=== PATIENT | male | born 1945 | race Caucasian/White ===

== ENCOUNTER → 2018-03-06 | Outpatient (CLI) | payer MEDICARE ==
--- NOTE | 2018-03-06 16:31 | CT ---
EXAMINATION TYPE: CT abdomen pelvis wo con DATE OF EXAM: 03/06/2018 COMPARISON: None HISTORY: Upper Abdominal pain with nausea and diarrhea CT DLP: 764.5 mGycm Examination of the solid and hollow viscera is limited given the lack of contrast. FINDINGS: LUNG BASES: No evidence for nodule. No evidence for infiltrate. 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 LIVER/GB: The gallbladder is surgically absent. No space-occupying hepatic lesion. PANCREAS: No pancreatic mass identified. No inflammatory process seen. SPLEEN: No evidence for splenomegaly. No intrasplenic lesions seen. ADRENALS: No adrenal nodules identified. No evidence for thickening. KIDNEYS: Hypoattenuating lesion 2 cm of the left kidney. Consider ultrasound correlation. No addition al left renal lesion seen. Additional vague area of decreased attenuation lower pole right kidney. 2 mm nonobstructing right-sided nephrolithiasis mid to upper pole. No hydronephrosis. BOWEL: Appendix has a normal appearance. No evidence of bowel obstruction. No inflammatory process. Lymph nodes: No evidence for adenopathy greater than 1 cm. Abdominal aorta: Atheromatous changes seen. No evidence for aneurysm. Genital organs: No significant abnormality. Other: Fat-containing inguinal hernias right greater than left. IMPRESSION: 1. No acute process seen. 2. Nonspecific renal lesions. Consider ultrasound correlation. 3. 2 mm nonobstructing right renal calculus.
== END | disposition home or self-care (01) ==
LOC: RADCTMAIN 15:59
PROVIDERS: ATTEND Internal Medicine
DX: N20.0 Calculus of kidney (principal); N28.89 Other specified disorders of kidney and ureter
CPT/HCPCS: 74176

== ENCOUNTER → 2018-03-15 | Outpatient (CLI) | payer MEDICARE ==
--- NOTE | 2018-03-15 09:45 | US ---
EXAMINATION TYPE: US kidneys/renal and bladder DATE OF EXAM: 03/15/2018 COMPARISON: CT 03/06/2018 CLINICAL HISTORY: N28.9 Kidney Lesion. Abdominal pain, kidney lesion seen on recent CT EXAM MEASUREMENTS: Right Kidney: 11.7 x 4.9 x 4.9 cm Left Kidney: 11.5 x 5.4 x 4.4 cm Right Kidney: Within the lower pole of the right kidney correlating abnormality is noted but is not c learly simple cystic, cystic area lower pole = 1.4 x 1.4 x 1.3cm. Dense echogenic area mid with no sh adowing = 0.4cm. Left Kidney: cystic area upper pole = 2.3 x 2.3 x 2.1cm, not clearly simple cystic Bladder: wnl Bilateral Jets seen: yes There is no evidence for hydronephrosis at this point in time. No nephrolithiasis is seen. No roderick s are identified. The urinary bladder is anechoic. Bilateral ureteral jets are seen. IMPRESSION: Nonobstructive right nephrolithiasis. Lesions small for characterization, follow-up to assess for sta bility, MRI could be performed for additional evaluation.
== END | disposition home or self-care (01) ==
LOC: RADUSWWP 09:00
PROVIDERS: ATTEND Internal Medicine
DX: N20.0 Calculus of kidney (principal)
CPT/HCPCS: 76770

== ENCOUNTER 2020-04-18 07:46 | Day surgery (SDC) | payer BC ==
[2020-04-17 09:32] VITALS: BMI 30.2
[~2020-04-18 07:46] MED LIST: LACTATED RINGERS 1,000 ML IV SCH; LIDOCAINE 1% (10MG/ML) FOR IV START INTRADERMA PRN
[2020-04-18 08:34] VITALS: RESP 16; TEMP 98
[2020-04-18] MEDS ORDERED: PROPOFOL 10 MG/ML 20 ML VIAL IV ONE (09:10)
[2020-04-18] MEDS ORDERED: LIDOCAINE 1% INJ 10MG/ML (20 ML MDV) ONE (09:10)
--- NOTE | 2020-04-18 09:24 | P.PCN ---
Date of Procedure: 04/18/20 Procedure(s) Performed: BRIEF HISTORY: Patient is a 74-year-old, pleasant, white male scheduled for an upper endoscopy as a part of evaluation of epigastric pain, abdominal bloating, intermittent nausea vomiting and passive regurgitation for the last 5-6 months duration. Symptoms have been progressively getting worse.. No associated weight loss. PROCEDURE PERFORMED: Esophagogastroduodenoscopy. PREOPERATIVE DIAGNOSIS: Epigastric pain/early satiety/nausea and abdominal bloating of 6 months duration. IV sedation per anesthesia. PROCEDURE: After informed consent was obtained, the patient was brought into the endoscopy unit. IV sedation was administered by Anesthesia under continuous monitoring. Initially the Olympus GIF-140 video endoscope was inserted into the mouth. Esophagus intubated without any difficulty. It was gradually advanced into the stomach and duodenum and carefully examined. The bulb and the second part of the duodenum appeared normal. Biopsies were done from the duodenum to rule out celiac disease. The scope at this time was withdrawn to the stomach, adequately insufflated with air, and upon careful examination, mucosa of the antrum, had mild diffuse gastritis and biopsies were done from this area. There were multiple polyps noted in the gastric body which were biopsied. Rest of the body, cardia and the fundus appeared normal. The scope was then withdrawn into the esophagus. The GE junction was located at 39 cm from the incisors. Small sliding type hiatal hernia noted. The esophagus appeared normal. There were no erosions or ulcerations seen, biopsies were done from the distal esophagus and the patient tolerated the procedure well. IMPRESSION: 1. Mild diffuse antral gastritis. 2. Multiple gastric polyps. 3. Small hiatal hernia RECOMMENDATIONS: The findings of this examination were discussed with the patient as well as his family. He was advised to follow with the biopsy results. He will continue with omeprazole 40 mg daily and follow antireflux measures..
[2020-04-18 09:47] VITALS: BP 145/90; PULSE 76
== END 2020-04-18 09:58 | disposition home or self-care (01) ==
LOC: ORWHC2ENDO 07:46
PROVIDERS: ATTEND Internal Medicine Gastroenterology
DX: K29.50 Unspecified chronic gastritis without bleeding (principal); K31.7 Polyp of stomach and duodenum; K44.9 Diaphragmatic hernia without obstruction or gangrene; I25.10 Atherosclerotic heart disease of native coronary artery without angina pectoris; E07.9 Disorder of thyroid, unspecified; K21.9 Gastro-esophageal reflux disease without esophagitis; Z88.0 Allergy status to penicillin; Z91.048 Other nonmedicinal substance allergy status; Z79.899 Other long term (current) drug therapy; Z79.890 Hormone replacement therapy; Z79.82 Long term (current) use of aspirin; Z97.2 Presence of dental prosthetic device (complete) (partial); Z87.891 Personal history of nicotine dependence; Z90.49 Acquired absence of other specified parts of digestive tract; Z98.890 Other specified postprocedural states; Z95.5 Presence of coronary angioplasty implant and graft
CPT/HCPCS: 88305; 43239; J2001; J2704

== ENCOUNTER 2020-04-21 01:56 | Emergency (ER) | payer BC ==
[2020-04-21 02:05] VITALS: TEMP 98.1
[2020-04-21 02:34] LABS: Basophils % (A) 0 %; Eosinophils # (A) 0.3 k/uL (0-0.7); Eosinophils % (A) 5 %; HCT 46.5 % (39.0-53.0); HGB 15.6 gm/dL (13.0-17.5); Lymphocytes # (A) 0.9 k/uL (1.0-4.8); Lymphocytes % (A) 17 %; MCH 31.9 pg (25.0-35.0); MCHC 33.6 g/dL (31.0-37.0); Mean Platelet Volume 8.2; Monocytes # (A) 0.4 k/uL (0-1.0); Monocytes % (A) 8 %; Neutrophils # (A) 3.6 k/uL (1.3-7.7); Neutrophils % (A) 68 %; Platelet Count 186 k/uL (150-450); RDW 12.7 % (11.5-15.5); WBC 5.2 k/uL (3.8-10.6)
[2020-04-21 02:42] LABS: INR 0.9 (<1.2); Partial Thromboplastin Time 24.4 sec (22.0-30.0); Prothrombin Time 9.8 sec (9.0-12.0)
[2020-04-21 02:44] LABS: ALT 21 U/L (4-49); AST 27 U/L (17-59); African American GFR (CKD) >90 (>60 ml/min/1.73 sqM); Albumin 4.2 g/dL (3.5-5.0); Alkaline Phosphatase 65 U/L (38-126); Anion Gap 6 mmol/L; Blood Urea Nitrogen 15 mg/dL (9-20); Calcium 8.8 mg/dL (8.4-10.2); Carbon Dioxide 26 mmol/L (22-30); Chloride 106 mmol/L (98-107); Glucose 127 mg/dL (74-99); Lipase 178 U/L (23-300); Non-African American GFR(CKD) >90 (>60 ml/min/1.73 sqM); Potassium 3.8 mmol/L (3.5-5.1); Sodium 138 mmol/L (137-145); Total Bilirubin 0.5 mg/dL (0.2-1.3)
--- NOTE | 2020-04-21 02:49 | XR ---
EXAMINATION TYPE: XR chest 2V DATE OF EXAM: 04/21/2020 COMPARISON: NONE HISTORY: Chest pain TECHNIQUE: 2 views FINDINGS: Heart is normal. There is mild blunting left costophrenic angle. There is slight elevated l eft diaphragm. There are no hilar masses. There is no heart failure. Mediastinum is normal. There are chest leads. IMPRESSION: Mild pleural reaction at the left lung base. Normal heart.
[2020-04-21] MEDS ORDERED: PANTOPRAZOLE 40 MG/10 ML VIAL IVP STA (03:19)
[2020-04-21] MEDS ORDERED: MAG HYDROX/AL HYDROX/SIMETH 30 ML, HYOSCYAMINE ELIXIR 10 ML, LIDOCAINE VISCOUS 2% 10 ML PO STA ×3 (03:19)
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
[2020-04-21] MEDS ORDERED: KETOROLAC 15 MG/ML 1 ML VIAL IVP STA (04:03)
[2020-04-21 04:20] VITALS: BP 139/94; PULSE 66; RESP 18
== END 2020-04-21 04:54 | disposition home or self-care (01) ==
LOC: EC 01:56
DX: K20.9 Esophagitis, unspecified (principal); K21.9 Gastro-esophageal reflux disease without esophagitis; M19.90 Unspecified osteoarthritis, unspecified site; E07.9 Disorder of thyroid, unspecified; I25.10 Atherosclerotic heart disease of native coronary artery without angina pectoris; Z79.82 Long term (current) use of aspirin; Z79.890 Hormone replacement therapy; Z79.899 Other long term (current) drug therapy; Z88.0 Allergy status to penicillin; Z91.041 Radiographic dye allergy status; Z85.46 Personal history of malignant neoplasm of prostate; Z87.891 Personal history of nicotine dependence; Z92.3 Personal history of irradiation; Z95.5 Presence of coronary angioplasty implant and graft; Z90.49 Acquired absence of other specified parts of digestive tract; Z80.0 Family history of malignant neoplasm of digestive organs
CPT/HCPCS: 36415; 93005; 83880; 80053; 83690; 83735; 84484; 85025; 85610; 85730; 71046; 99285; 96374; 96375; J1885; C9113

== ENCOUNTER → 2020-06-16 | Outpatient (CLI) | payer BC ==
--- NOTE | 2020-06-16 20:30 | US ---
EXAMINATION TYPE: US thyroid st tissue head/neck DATE OF EXAM: 06/16/2020 COMPARISON: NONE CLINICAL HISTORY: 74-year-old male R13.10 DYSPHAGIA. Dysphagia. Patient takes thyroid medication. *Cale majano had radioactive iodine therapy many years ago. TECHNIQUE: Multiple sonographic images of the thyroid gland are obtained. FINDINGS: GLAND SIZE: Right Lobe: No thyroid tissue seen at this time. Left Lobe: There does appear to be some thyroid tissue on left side measuring approximately: 4.4 x 1. 0 x 1.8 cm Overall Parenchyma: heterogeneous Isthmus Thickness: 0.27 cm NODULES RIGHT: # of nodules measured on right: 0 Tissue was not visualized at this time on the right side. LEFT: 1. 1.5 X 1.4 x 1.3 cm heterogeneous solid nodule seen at the lower pole with well-defined margins. This area is wider than tall and shows vascularity. Prior size: no prior ISTHMUS: # of nodules measured in the isthmus: 0 Bilateral neck scanned, no evidence of lymphadenopathy. Machine Tool Operator notes: Limited exam. There does appear to be tissue on the left side and left side of ist hmus. Rounded, heterogeneous area with vascularity seen on the left side as mentioned above. IMPRESSION: 1. The packaging associate indicates that the patient had prior radioactive iodine ablation of the thyroid gl and. 2. There is some residual glandular parenchyma on the left side. 3. Additionally, there is a 1.5 cm solid nodule at the left lower pole. The decision to biopsy should be made on a clinical basis.
== END | disposition home or self-care (01) ==
LOC: RADUSWWP 16:49
PROVIDERS: ATTEND Internal Medicine
DX: E04.1 Nontoxic single thyroid nodule (principal); R93.89 Abnormal findings on diagnostic imaging of other specified body structures
CPT/HCPCS: 76536

== ENCOUNTER → 2020-06-30 | Outpatient (CLI) | payer BC ==
--- NOTE | 2020-07-01 16:37 | MR ---
MR liver with and without contrast, MRCP Multiplanar multisequence and postcontrast images obtained through the abdomen following 9 cc Gadavis t IV. Three-dimensional reconstructions performed through the biliary system. Comparison CT scan 03/06/2018 HISTORY: Epigastric pain, R 10.13 The liver shows signal drop on out of phase imaging consistent with hepatic steatosis. There is no ev ident liver mass. The inferior margin of the right lobe of the liver there are T2 bright foci showing a bilobed appearance likely related to patient's prior surgery, there is susceptibility artifact due to the metallic clips, in comparison to CT scan the cystic focus has increased in size and now measu res 4 x 2.8 cm x 2.4 cm where as on previous exam the area measured only 2.2 cm in greatest transvers e dimension by 1.4 cm in cephalad to caudal dimension by 1.2 cm in AP dimension area Kidneys show probable associated cysts, no hydronephrosis. Adrenal glands within normal limits. No re troperitoneal adenopathy or ascites. Aorta shows normal caliber in its visualized portions. Spleen is not enlarged. Pancreas shows no mass. Biliary system is not dilated, there is no abnormal filling defect to suggest choledocholithiasis. No abnormal enhancement following contrast administration. IMPRESSION: Bilobed cystic focus in the region of patient's cholecystectomy clips could represent dil ated cystic duct remnant. There is been progression in size as compared to prior exam as described. N o biliary ductal dilatation or choledocholithiasis. Hepatic steatosis.
== END | disposition home or self-care (01) ==
LOC: RADMRIMAIN 14:35
PROVIDERS: ATTEND Internal Medicine
DX: K76.0 Fatty (change of) liver, not elsewhere classified (principal); Z90.49 Acquired absence of other specified parts of digestive tract
CPT/HCPCS: 74183; A9585

== ENCOUNTER 2020-07-14 10:49 | Outpatient (CLI) | payer BC ==
[2020-07-14 11:31] LABS: African American GFR (CKD) >90 (>60 ml/min/1.73 sqM); Blood Urea Nitrogen 18 mg/dL (9-20); Non-African American GFR(CKD) 85 (>60 ml/min/1.73 sqM)
--- NOTE | 2020-07-14 13:07 | CT ---
EXAMINATION TYPE: CT soft tissue neck w con DATE OF EXAM: 07/14/2020 COMPARISON: Ultrasound 06/16/2020 HISTORY: 74-year-old male male E04.1, Follow up nodule. TECHNIQUE: Contiguous axial scanning of the soft tissues of the neck performed with IV Contrast, carlos ent injected with 100 mL of Isovue 300. Coronal/sagittal reconstructions performed. CT DLP: 534.9 mGycm Automated exposure control for dose reduction was used. FINDINGS: Possible pleural plaque posterior right upper hemithorax with tiny calcification, axial image 2. Jasmyn elation can be made for any prior asbestos exposure. Visualized intracranial structures, orbits and globes, and mastoid air cells appear clear. Leftward n julio c septal deviation. Trace mucosal thickening ethmoid air cells. Nasopharynx is clear. Oropharynx is clear with mild minimal tonsillar hypertrophy. Epiglottis within normal limits. Some nonspecific calcifications below the anterior arch of C1 of que stionable clinical significance given the lack of any retropharyngeal effusion. Glottic and subglottic structures as well as the tracheal column and visualized upper lungs otherwise clear. Minimal residual thyroid parenchyma is present, left greater than right. A heterogeneously enhancing 1.5 cm nodule is present on the left. The submandibular and parotid glands appear satisfactory. No cervical lymphadenopathy identified. Bones: Hypertrophic uncovertebral joint arthropathy. Moderate endplate spondylosis particularly towar ds the right mid and lower cervical spine. Reversal of the normal cervical lordosis. IMPRESSION: 1. SMALL AMOUNT OF RESIDUAL THYROID GLAND PARENCHYMA REMAINS ON EITHER SIDE, LEFT GREATER THAN RIGHT. 2. IN ADDITION, THERE IS A HETEROGENEOUSLY ENHANCING 1.5 CM SOLID NODULE IN THE LEFT LOBE. 3. NO CERVICAL LYMPHADENOPATHY OR OTHER MASS. 4. THERE APPEARS TO BE A PLEURAL PLAQUE WITH PUNCTATE CALCIFICATION IN THE VISUALIZED RIGHT UPPER STEF G. QUERY HISTORY OF PRIOR ASBESTOS EXPOSURE.
[2020-07-14 13:12] VITALS: RESP 18; TEMP 98.1
[2020-07-14 13:13] VITALS: BP 124/76; PULSE 84
--- NOTE | 2020-07-14 14:33 | US ---
EXAMINATION TYPE: US FNA thyroid first lesion DATE OF EXAM: 07/14/2020 COMPARISON: NONE HISTORY: Thyroid nodule, E04.1 Maximal barrier technique was utilized. Ultrasound using sterile technique. The skin overlying the lo wer pole left-sided thyroid nodule was localized with ultrasound and the overlying skin prepped and d raped. Lidocaine used for local anesthesia. 5 passes with a 25-gauge needle were made into the nodule under ultrasound guidance. Aspirate specimen submitted to cytology. Following the procedure hemostas is achieved. No immediate complication IMPRESSION: Status post ultrasound-guided fine-needle aspiration of thyroid nodule, pathology pending .
== END 2020-07-14 13:00 | disposition home or self-care (01) ==
LOC: RADCTMAIN 10:49
PROVIDERS: ATTEND Otolaryngology
DX: E04.1 Nontoxic single thyroid nodule (principal); Z88.0 Allergy status to penicillin; Z98.890 Other specified postprocedural states
CPT/HCPCS: 82565; 84520; 10005; 70491; Q9967; 88173; 88305

== ENCOUNTER → 2022-08-18 | Outpatient (CLI) | payer BC ==
--- NOTE | 2022-08-18 16:17 | CT ---
EXAMINATION TYPE: CT abdomen pelvis wo con DATE OF EXAM: 08/18/2022 COMPARISON: 03/06/2018 INDICATION: Generalized abdominal pain. DLP: 1167 mGycm, Automated exposure control for dose reduction was used. CONTRAST: 0 mL of Isovue 300. Study performed with Oral Contrast TECHNIQUE: Axial images were obtained from above the diaphragm to the pubic rami in the axial plane a t 5 mm thick sections. Reconstructed images are reviewed on the computer in the coronal plane. FINDINGS: Limited CT sections are obtained the lung bases. There is a pleural-based calcification along the po sterior lateral right lung measuring 0.6 cm. Series 3 image 6. Some additional pleural calcifications in the posterior bilateral lung bases. Example Series 3 image 9 and series 3 image 15. Coronary art samantha calcification is present. CT ABDOMEN: Liver: Normal Spleen: Normal Pancreas: Normal Adrenal glands: The adrenal glands are normal. Gallbladder: Surgically absent . There are cystlike areas within the gallbladder bed. These do not de finitely correlate with bile ducts. This measures 2.2 cm and 0 Hounsfield units Kidneys: No masses are evident. No hydronephrosis is present. There is a 2.9 cm cyst within the sup erior medial left kidney measuring 2 Hounsfield units. There is a small inferior medial right renal c yst measuring 1.7 cm and -3 Hounsfield units. There is a nonobstructing renal stone at the inferior p ole right kidney measuring 0.2 cm. Aorta: Vascular calcification is within the aorta. Inferior vena cava: Normal. CT PELVIS: Loops of bowel within the abdomen and pelvis are normal. Diverticulosis without acute diverticulitis is present oral contrast extends to the ascending colon. There are loops of bowel which are incomp letely distended or lack oral contrast limiting their evaluation. Appendix: Normal as visualized. Urinary bladder: Normal. Genitourinary structures: Prostate is normal Osseous structures: No suspicious lytic or sclerotic lesions. IMPRESSIONS: 1. Nonobstructing right renal stone. 2. Bilateral renal cysts. 3. Cystlike areas of uncertain etiology within the gallbladder bed. 4. Diverticulosis without diverticulitis. 4. Pleural-based calcifications within the dependent lung bases. Correlate for prior specificity expo sure
== END | disposition home or self-care (01) ==
LOC: RADCTMAIN 12:18
PROVIDERS: ATTEND Family Medicine
DX: N20.0 Calculus of kidney (principal); N28.1 Cyst of kidney, acquired; J98.4 Other disorders of lung; K57.30 Diverticulosis of large intestine without perforation or abscess without bleeding
CPT/HCPCS: 74176

== ENCOUNTER → 2022-12-22 | Outpatient (CLI) | payer BC ==
--- NOTE | 2022-12-22 13:02 | CT ---
EXAMINATION TYPE: CT brain wo con DATE OF EXAM: 12/22/2022 HISTORY: Headaches post Cataract sx CT DLP: 1189 mGycm. Automated Exposure Control for Dose Reduction was Utilized. TECHNIQUE: CT scan of the head is performed without contrast. COMPARISON: None. FINDINGS: There is no acute intracranial hemorrhage or midline shift identified. There is mild to m oderate diffuse ventricular and sulcal prominence. There is moderate low-attenuation in the deep and periventricular white matter. The globes are intact and the visualized sinuses are clear. IMPRESSION: No acute intracranial hemorrhage or midline shift. There is mild to moderate diffuse ag e-related cerebral atrophy and moderate probable chronic small vessel ischemic change noted.
== END | disposition home or self-care (01) ==
LOC: RADCTMAIN 12:15
PROVIDERS: ATTEND Family Medicine
DX: I67.82 Cerebral ischemia (principal); G44.52 New daily persistent headache (NDPH); G31.9 Degenerative disease of nervous system, unspecified
CPT/HCPCS: 70450

== ENCOUNTER → 2023-05-10 | Outpatient (CLI) | payer BC ==
--- NOTE | 2023-05-10 13:20 | US ---
EXAMINATION TYPE: US arterial LE single level DATE OF EXAM: 05/10/2023 9:20 AM CLINICAL INDICATION: Male, 77 years old with history of R60.0 LOCALIZED EDEMA BLE; Cat bite to right leg 33 years ago, numbness at site, skin has broken open on and off over the 33 years at same site. History of: Smoker: quit 40 yrs ago Hypertension: n Diabetic: n Hyperlipidemia: n TIA/CVA: n Previous Vascular Surgery: y-heart stents CAD: n AL: n Vascular Ulcers: n Claudication: n Gangrene: n Doppler Waveforms: Right: Multiphasic Left: Multiphasic Right Brachial Pressure: 138 Left Brachial Pressure: 151 Ankle-Brachial Indices: Right: 0.9 Left: 0.8 Toe Brachial Indices: Right: 1.1 Left: 1.1 IMPRESSION: Normal DELIA bilaterally.
== END | disposition home or self-care (01) ==
LOC: RADUSWWP 08:52
PROVIDERS: ATTEND Family Medicine
DX: E11.51 Type 2 diabetes mellitus with diabetic peripheral angiopathy without gangrene (principal); E78.5 Hyperlipidemia, unspecified; I10 Essential (primary) hypertension; I25.10 Atherosclerotic heart disease of native coronary artery without angina pectoris; Z86.73 Personal history of transient ischemic attack (TIA), and cerebral infarction without residual deficits; Z87.891 Personal history of nicotine dependence; Z95.5 Presence of coronary angioplasty implant and graft
CPT/HCPCS: 93922

== ENCOUNTER → 2023-08-25 | Outpatient (CLI) | payer BC ==
[2023-08-25 09:11] LABS: African American GFR (CKD) >90 (>60 ml/min/1.73 sqM); Blood Urea Nitrogen 20 mg/dL (9-20); Non-African American GFR(CKD) 85 (>60 ml/min/1.73 sqM)
--- NOTE | 2023-08-25 10:32 | CT ---
CTA CHEST EXAMINATION TYPE: CT angio chest DATE OF EXAM: 08/25/2023 INDICATION: Disease of mediastinum, calcification lung base CT DLP: 782.6 mGycm, Automated exposure control for dose reduction was used. CONTRAST: Patient injected with 100 ml mL of Isovue 370. COMPARISON: CT abdomen and pelvis 08/18/2022 TECHNIQUE: CT of the chest is performed on a spiral scan at 2 mm thick sections. Study is performed with intravenous contrast timed for evaluation for pulmonary embolism. This will limit additional po rtions of the evaluation. 3-D MIP images reconstructed by the technologist are reviewed on the compu ter in the coronal and sagittal planes. FINDINGS: No persistent filling defects are evident to suggest an acute pulmonary embolism. Posterior pleural calcifications are evident bilaterally within the lower lung melgar. No suspicious calcification along the diaphragms are evident. The lungs appear clear without masses nodules or suspicious infiltrates. The ascending aorta diameter at the level of the main pulmonary artery is 3.5 cm. The main pulmonary artery diameter at the bifurcation is 3.3 cm. Mild coronary artery calcification is present. Limited CT sections were through the upper abdomen. Upper abdomen appears unremarkable. IMPRESSION: 1. Chronic appearing calcification posterior lung bases appears stable from comparison. 2. No suspicious acute pulmonary process.
== END | disposition home or self-care (01) ==
LOC: RADCTMAIN 08:22
PROVIDERS: ATTEND Family Medicine
DX: J98.59 Other diseases of mediastinum, not elsewhere classified (principal); J98.4 Other disorders of lung
CPT/HCPCS: 82565; 84520; 71275; 36415; Q9967

== ENCOUNTER 2025-01-19 04:02 | Observation (INO) | payer BC, MEDICARE ==
[2025-01-19 04:07] VITALS: TEMP 98.6
[2025-01-19] MEDS: SODIUM CHLORIDE 0.9% 1,000 ML IV STA (04:33)
[2025-01-19] MEDS: PANTOPRAZOLE 40 MG/10 ML VIAL IVP STA (04:33)
[2025-01-19] MEDS: ASPIRIN 81 MG PO STA (04:33)
[2025-01-19 05:05] LABS: Basophils # (A) 0.03 10*3/uL (0.00-0.10); Basophils % (A) 0.6 %; Eosinophils % (A) 2.1 %; HCT 45.4 % (39.6-50.0); HGB 15.4 g/dL (13.0-17.0); Lymphocytes # (A) 0.89 10*3/uL (0.90-5.00); Lymphocytes % (A) 18.9 %; MCH 32.2 pg (27.0-32.0); MCHC 33.9 g/dL (32.0-37.0); MCV 94.8 fL (80.0-97.0); Monocytes % (A) 10.6 %; Neutrophils # (A) 3.17 10*3/uL (1.80-7.70); Neutrophils % (A) 67.4 %; Platelet Count 167 10*3/uL (140-440); RBC 4.79 10*6/uL (4.40-5.60); RDW 11.9 % (11.5-14.5); WBC 4.71 10*3/uL (4.50-10.00)
[2025-01-19 05:17] LABS: Partial Thromboplastin Time 24.1 sec (22.0-30.0)
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
[2025-01-19 05:27] LABS: ALT 24 U/L (4-49); AST 32 U/L (17-59); African American GFR (CKD) >90 (>60 ml/min/1.73 sqM); Albumin 4.7 g/dL (3.5-5.0); Alkaline Phosphatase 77 U/L (38-126); Anion Gap 14 mmol/L; Blood Urea Nitrogen 18 mg/dL (9-20); Calcium 9.3 mg/dL (8.4-10.2); Carbon Dioxide 19 mmol/L (22-30); Chloride 104 mmol/L (98-107); Glucose 104 mg/dL (74-99); Lipase 144 U/L (23-300); Non-African American GFR(CKD) >90 (>60 ml/min/1.73 sqM); Sodium 137 mmol/L (137-145); Total Bilirubin 0.8 mg/dL (0.2-1.3); Total Protein 7.5 g/dL (6.3-8.2)
[2025-01-19] MEDS ORDERED: NALOXONE 0.4 MG/ML 1 ML VIAL IV PRN (06:05)
[2025-01-19] MEDS ORDERED: ONDANSETRON 4 MG/2 ML VIAL IVP PRN (06:05)
[2025-01-19] MEDS: SODIUM CHLORIDE 0.9% 1,000 ML IV SCH (06:11)
[2025-01-19 06:13] VITALS: BP 137/99; PULSE 73; RESP 16
--- NOTE | 2025-01-19 06:25 | XR ---
EXAM: XR Chest, 2 Views CLINICAL HISTORY: ITS.REASON XR Reason: Chest Pain TECHNIQUE: Frontal and lateral views of the chest. COMPARISON: CT dated 04/21/2020. FINDINGS: Lungs: Opacification of the left lung base. The right lung is clear. Pleural space: Left-sided pleural effusion. No pneumothorax. Heart: Moderate enlargement of the cardiac silhouette. Mediastinum: Unremarkable. Normal mediastinal contour. Bones/joints: Degenerative changes are seen within the spine and shoulders. No acute fracture. Vasculature: Calcifications overlie the aorta. IMPRESSION: Left-sided small pleural effusion with adjacent atelectasis and/or pneumonia not excluded.
[2025-01-19] MEDS ORDERED: HEPARIN SODIUM,PORCINE 5,000 UNIT/ML 1 ML VIAL SQ SCH (09:00)
== END 2025-01-19 07:55 | disposition left against medical advice (07) ==
LOC: EC 04:02 → 6NMEDSUR 06:05
PROVIDERS: ADMIT Internal Medicine; ATTEND Internal Medicine
DX: R07.9 Chest pain, unspecified (principal); I10 Essential (primary) hypertension; I25.10 Atherosclerotic heart disease of native coronary artery without angina pectoris; K21.9 Gastro-esophageal reflux disease without esophagitis; Z79.82 Long term (current) use of aspirin; Z53.29 Procedure and treatment not carried out because of patient's decision for other reasons; Z87.891 Personal history of nicotine dependence; Z95.5 Presence of coronary angioplasty implant and graft; Z88.0 Allergy status to penicillin; Z79.899 Other long term (current) drug therapy; Z91.041 Radiographic dye allergy status
CPT/HCPCS: 96361; 96374; 99285; 36415; 93005; 80053; 83690; 83735; 84484; 85025; 85610; 85730; 71046; G0378; J2470